=== PATIENT | female | born 1985 | race Caucasian/White ===

== ENCOUNTER 2016-05-19 14:47 | Emergency (ER) | payer OTHER | END 2016-05-19 18:26 | disposition home or self-care (01) | LOC: ER 14:47 | PROC: 0T2BX0Z Change Drainage Device in Bladder, External Approach (ICD-10-PCS; principal; 2016-05-19) | DX: Z46.6 Encounter for fitting and adjustment of urinary device (principal); Z88.8 Allergy status to other drugs, medicaments and biological substances; Z88.5 Allergy status to narcotic agent | CPT/HCPCS: 96372; 99283; J1885 ==